=== PATIENT | male | born 1985 | race Caucasian/White ===

== ENCOUNTER 2023-11-30 01:56 | Emergency (ER) | payer OTHER ==
[~2023-11-30] VITALS: Ht 182.8 cm; Wt 111.1 kg
[~2023-11-30 01:56] MED LIST: CEPHALEXIN500 M1 PO; CLONAZEPAM1 M1; DAYPRO600 M1 PO; DEPAKOTE500 MG; FLEXERIL10 MG PO; HALOPERIDOL2 MG; INVEGA9 MG PO; MOTRIN800 MG PO; PROTONIX40 MG PO; ROBAXIN750 MG PO; TRAZODONE100 MG; TRIHEXYPHENIDYL2 M3 PO; VIBRA-TAB100 MG PO; VITAMIN D350 MCG PO; VITAMIN D50000 I3 PO; ZITHROMAX250 MG PO; ZYPREXA15 MG
[2023-11-30 02:26] LABS: BASO # 0.1 10*3/uL (0.0-0.1); BASO % 0.9 % (0.0-1.0); EOS # 0.1 10*3/uL (0.0-0.4); EOS % 1.3 % (1.0-4.0); LYMPH # 2.4 10*3/uL (1.3-4.4); MEAN CELL VOLUME 88.9 fl (80.0-94.0); MEAN CORPUSCULAR HGB CONC 31.5 g/dl (33.0-37.0); MONO # 0.9 10*3/uL (0.1-1.0); MONO % 11.6 % (3.0-9.0); NEUT # 4.2 10*3/uL (2.3-7.9); NEUT % 54.8 % (47.0-73.0); PLATELET COUNT AUTOMATED 349 10*3/uL (130-400); RED BLOOD COUNT 4.61 10*6/uL (4.50-5.90); RED CELL DISTRI WIDTH 12.6 % (0-14.5); WHITE BLOOD COUNT 7.7 10*3/uL (4.8-10.8)
[2023-11-30 02:48] LABS: ALKALINE PHOSPHATASE 66 U/L (46-116); BUN 19 mg/dl (9-23); CHLORIDE 108 mmol/L (98-107); POTASSIUM 3.6 mmol/L (3.4-5.1); SGPT/ALT 12 U/L (5-49); TOTAL PROTEIN 6.7 gm/dL (6.0-8.0)
[2023-11-30] MEDS ORDERED: PENICILLIN V POTASSIUM 500 MG TAB PO ONE (03:00)
[2023-11-30] MEDS ORDERED: Ondansetron Hydrochloride 4 MG TAB SL ONE (03:00)
[2023-11-30] MEDS ORDERED: Acetaminophen/Hydrocodone 5 MG/325 MG TABLET PO ONE (03:00)
[2023-11-30] MEDS ORDERED: PENICILLIN VK500 MG PO (03:01)
== END 2023-11-30 03:14 | disposition home or self-care (01) ==
LOC: ED 01:56
PROVIDERS: Internal Medicine
DX: R07.89 Other chest pain (principal); K02.9 Dental caries, unspecified; F41.9 Anxiety disorder, unspecified; F17.200 Nicotine dependence, unspecified, uncomplicated; Z88.8 Allergy status to other drugs, medicaments and biological substances; Z90.49 Acquired absence of other specified parts of digestive tract; Z98.890 Other specified postprocedural states

== ENCOUNTER 2023-12-06 10:18 | Emergency (ER) | payer OTHER ==
[~2023-12-06] VITALS: Wt 93.9 kg
[~2023-12-06 10:18] MED LIST changes: +PENICILLIN VK500 MG PO
[2023-12-06 10:55] LABS: BASO # 0.1 10*3/uL (0.0-0.1); BASO % 0.3 % (0.0-1.0); EOS # 0.1 10*3/uL (0.0-0.4); EOS % 0.3 % (1.0-4.0); HEMATOCRIT 39.7 % (42.0-52.0); LYMPH # 1.1 10*3/uL (1.3-4.4); LYMPH % 7.4 % (27.0-41.0); MEAN CELL VOLUME 87.8 fl (80.0-94.0); MEAN CORPUSCULAR HGB 27.9 pg (27.0-31.0); MEAN CORPUSCULAR HGB CONC 31.7 g/dl (33.0-37.0); MEAN PLATELET VOLUME 8.7 fl (9.6-12.3); MONO # 1.4 10*3/uL (0.1-1.0); NEUT # 12.5 10*3/uL (2.3-7.9); NEUT % 82.7 % (47.0-73.0); PLATELET COUNT AUTOMATED 392 10*3/uL (130-400); RED BLOOD COUNT 4.52 10*6/uL (4.50-5.90); RED CELL DISTRI WIDTH 12.7 % (0-14.5); WHITE BLOOD COUNT 15.1 10*3/uL (4.8-10.8)
[2023-12-06 11:26] LABS: ALKALINE PHOSPHATASE 60 U/L (46-116); BUN 12 mg/dl (9-23); CHLORIDE 104 mmol/L (98-107); CPK 244 U/L (34-171); POTASSIUM 3.7 mmol/L (3.4-5.1); SGPT/ALT 11 U/L (5-49); TOTAL PROTEIN 6.9 gm/dL (6.0-8.0)
[2023-12-06 11:35] LABS: ETHYL ALCOHOL < 3.0 mg/dl (<3)
[2023-12-06] MEDS ORDERED: LORazepam 2 MG/ML VIAL IV ONE (12:55)
[2023-12-06 13:31] LABS: BILIRUBIN Negative (Negative); BLOOD Negative (Negative); CLARITY Clear (Clear); COLOR Yellow (Yellow); GLUCOSE Negative (Negative); KETONE 2+ (Negative); LEUKO ESTERASE Negative (Negative); NITRITE Negative (Negative)
[2023-12-06 13:39] LABS: URINE AMPHETAMINES Negative (1000ng/ml); URINE BARBITURATES Negative (200ng/ml); URINE BENZODIAZEPINES Negative (200ng/ml); URINE CANNABINOIDS (THC) Negative (50ng/ml); URINE COCAINE Negative (300ng/ml); URINE METHADONE Negative (300ng/ml); URINE OPIATES Negative (300ng/ml); URINE PHENCYCLIDINE Negative (25ng/ml)
[2023-12-06 13:42] LABS: BACTERIA 1+
[2023-12-06 13:43] LABS: MUCOUS 1+; RBC 0-2 rbc/hpf (0-2); WBC 0-2 wbc/hpf (0-5)
== END 2023-12-06 16:33 | disposition left against medical advice (07) ==
LOC: ED 10:18
PROVIDERS: Internal Medicine
DX: R55 Syncope and collapse (principal); F41.9 Anxiety disorder, unspecified; F17.200 Nicotine dependence, unspecified, uncomplicated; Z88.8 Allergy status to other drugs, medicaments and biological substances; Z90.49 Acquired absence of other specified parts of digestive tract; Z98.890 Other specified postprocedural states; Z53.29 Procedure and treatment not carried out because of patient's decision for other reasons

== ENCOUNTER 2023-12-07 06:05 | Emergency (ER) | payer OTHER ==
[~2023-12-07] VITALS: Ht 177.8 cm; Wt 86.2 kg
[2023-12-07 06:29] LABS: BASO # 0.1 10*3/uL (0.0-0.1); BASO % 0.5 % (0.0-1.0); EOS # 0.1 10*3/uL (0.0-0.4); EOS % 0.7 % (1.0-4.0); LYMPH # 1.1 10*3/uL (1.3-4.4); LYMPH % 11.4 % (27.0-41.0); MEAN CELL VOLUME 86.6 fl (80.0-94.0); MEAN CORPUSCULAR HGB 28.1 pg (27.0-31.0); MEAN CORPUSCULAR HGB CONC 32.5 g/dl (33.0-37.0); MEAN PLATELET VOLUME 8.8 fl (9.6-12.3); MONO # 0.8 10*3/uL (0.1-1.0); MONO % 8.1 % (3.0-9.0); NEUT # 7.5 10*3/uL (2.3-7.9); PLATELET COUNT AUTOMATED 410 10*3/uL (130-400); RED BLOOD COUNT 4.62 10*6/uL (4.50-5.90); RED CELL DISTRI WIDTH 12.8 % (0-14.5); WHITE BLOOD COUNT 9.6 10*3/uL (4.8-10.8)
[2023-12-07 06:48] LABS: ALKALINE PHOSPHATASE 65 U/L (46-116); BUN 8 mg/dl (9-23); CHLORIDE 104 mmol/L (98-107); POTASSIUM 3.5 mmol/L (3.4-5.1); SGPT/ALT 13 U/L (5-49); TOTAL PROTEIN 7.2 gm/dL (6.0-8.0)
[2023-12-07 06:56] LABS: ETHYL ALCOHOL < 3.0 mg/dl (<3)
== END 2023-12-07 08:47 | disposition left against medical advice (07) ==
LOC: ED 06:05
PROVIDERS: Internal Medicine
DX: R41.82 Altered mental status, unspecified (principal); F41.9 Anxiety disorder, unspecified; F17.200 Nicotine dependence, unspecified, uncomplicated; Z88.8 Allergy status to other drugs, medicaments and biological substances; Z90.49 Acquired absence of other specified parts of digestive tract; Z98.890 Other specified postprocedural states; Z53.29 Procedure and treatment not carried out because of patient's decision for other reasons

== ENCOUNTER 2024-02-06 15:29 | Emergency (ER) | payer OTHER ==
[~2024-02-06] VITALS: Ht 182.8 cm; Wt 99.8 kg
[2024-02-06] MEDS ORDERED: IBUPROFEN 800 MG TAB PO ONE (15:35)
[2024-02-06] MEDS ORDERED: IBU800 M2 PO (16:32)
== END 2024-02-06 16:45 | disposition home or self-care (01) ==
LOC: ED 15:29
DX: S09.8XXA Other specified injuries of head, initial encounter (principal); F32.A Depression, unspecified; F41.9 Anxiety disorder, unspecified; F17.200 Nicotine dependence, unspecified, uncomplicated; Z88.8 Allergy status to other drugs, medicaments and biological substances; Z90.49 Acquired absence of other specified parts of digestive tract; Z98.890 Other specified postprocedural states; Z96.651 Presence of right artificial knee joint; Y08.89XA Assault by other specified means, initial encounter; Y93.89 Activity, other specified; Y92.512 Supermarket, store or market as the place of occurrence of the external cause; Y99.8 Other external cause status

== ENCOUNTER 2024-10-14 11:18 | Emergency (ER) | payer OTHER ==
[~2024-10-14 11:18] MED LIST changes: +IBU800 M2 PO
[2024-10-14] MEDS ORDERED: LORazepam 1 MG TAB PO ONE (11:40)
[2024-10-14 11:43] LABS: BASO # 0.1 10*3/uL (0.0-0.1); BASO % 0.7 % (0.0-1.0); EOS % 0.3 % (1.0-4.0); HEMATOCRIT 40.5 % (42.0-52.0); MEAN CELL VOLUME 88.8 fl (80.0-94.0); MEAN CORPUSCULAR HGB 29.2 pg (27.0-31.0); MEAN CORPUSCULAR HGB CONC 32.8 g/dl (33.0-37.0); MEAN PLATELET VOLUME 9.1 fl (9.6-12.3); MONO # 0.5 10*3/uL (0.1-1.0); MONO % 6.7 % (3.0-9.0); NEUT # 5.5 10*3/uL (2.3-7.9); NEUT % 78.4 % (47.0-73.0); PLATELET COUNT AUTOMATED 295 10*3/uL (130-400); RED BLOOD COUNT 4.56 10*6/uL (4.50-5.90); RED CELL DISTRI WIDTH 12.1 % (0-14.5)
[2024-10-14 11:46] LABS: BILIRUBIN Negative (Negative); BLOOD 1+ (Negative); CLARITY Clear (Clear); COLOR Dark Yellow (Yellow); GLUCOSE Negative (Negative); KETONE Trace (Negative); LEUKO ESTERASE Negative (Negative); NITRITE Negative (Negative); PH 5.5 (4.5-8.0); SPECIFIC GRAVITY >= 1.030 (1.001-1.030)
[2024-10-14 11:54] LABS: URINE AMPHETAMINES Negative (1000ng/ml); URINE BARBITURATES Negative (200ng/ml); URINE BENZODIAZEPINES Negative (200ng/ml); URINE CANNABINOIDS (THC) Negative (50ng/ml); URINE COCAINE Negative (300ng/ml); URINE METHADONE Negative (300ng/ml); URINE OPIATES Negative (300ng/ml); URINE PHENCYCLIDINE Negative (25ng/ml)
[2024-10-14 12:03] LABS: BUN 14 mg/dl (9-23); CHLORIDE 106 mmol/L (98-107); POTASSIUM 3.7 mmol/L (3.4-5.1)
[2024-10-14 12:05] LABS: BACTERIA TRACE; EPITHELIAL CELLS 0-2; MUCOUS 2+; WBC 0-2 wbc/hpf (0-5)
[2024-10-14 12:11] LABS: ETHYL ALCOHOL < 3.0 mg/dl (<3)
== END 2024-10-14 16:05 ==
LOC: ED 11:18
PROVIDERS: Nurse Practitioner Family
DX: F25.9 Schizoaffective disorder, unspecified (principal); Z79.899 Other long term (current) drug therapy; Z88.8 Allergy status to other drugs, medicaments and biological substances; Z90.49 Acquired absence of other specified parts of digestive tract; Z98.890 Other specified postprocedural states